=== PATIENT | male | born 1975 | race Caucasian/White ===

== ENCOUNTER 2018-02-27 15:41 | Emergency (ER) | payer OTHER ==
[~2018-02-27] VITALS: Ht 175.3 cm; Wt 77.1 kg
[2018-02-27 16:02] VITALS: BP 128/74
[2018-02-27] MEDS ORDERED: CLEOCIN HCL150 MG PO (16:02)
== END 2018-02-27 16:18 | disposition home or self-care (01) ==
LOC: ER 15:41
DX: S70.362A Insect bite (nonvenomous), left thigh, initial encounter (principal); L03.116 Cellulitis of left lower limb; W57.XXXA Bitten or stung by nonvenomous insect and other nonvenomous arthropods, initial encounter; Y93.89 Activity, other specified; Y92.89 Other specified places as the place of occurrence of the external cause; Y99.8 Other external cause status